=== PATIENT | male | born 1975 | race Caucasian/White ===

== ENCOUNTER 2016-06-29 03:21 | Emergency (ER) | payer MEDICAID, OTHER ==
[~2016-06-29] VITALS: Ht 180.3 cm; Wt 71.0 kg
[2016-06-29 03:24] VITALS: Ht 180.3 cm; Wt 71.0 kg
[2016-06-29] MEDS ORDERED: SOD CHLORIDE 0.9% 1,000 ML IV STA (03:50)
[2016-06-29] MEDS ORDERED: ONDANSETRON 4 MG INJ IV STA (03:50)
[2016-06-29 04:30] LABS: ALBUMIN 4.3 g/dl (3.3-4.9); CHLORIDE 98 mmol/L (97-110); HEMATOCRIT 45.7 % (42.0-52.0); HEMOGLOBIN 15.9 g/dl (14.0-18.0); LYMPHOCYTES % 10.6 % (15.0-51.0); MEAN CORPUSCULAR HEMOGLOBIN 31.9 pg (29.0-33.0); MEAN CORPUSCULAR HGB CONC 34.8 g/dl (32.0-37.0); MEAN CORPUSCULAR VOLUME 91.6 fl (82.0-101.0); MEAN PLATELET VOLUME 8.2 fl (7.4-10.4); MONOCYTE # 0.4 10^3/ul (0.3-0.9); MONOCYTES % 4.7 % (0.0-11.0); NEUTROPHIL # 8.1 10^3/ul (1.6-7.5); NEUTROPHILS % 84.7 % (39.0-77.0); PLATELET COUNT 311 10^3/UL (140-440); RED BLOOD COUNT 4.99 10^6/ul (4.70-6.10); RED CELL DISTRIBUTION WIDTH 13.2 % (11.5-14.5); UNCORRECTED WBC 9.5 10^3/ul (4.8-10.8); WHITE BLOOD COUNT 9.5 10^3/ul (4.8-10.8)
[2016-06-29 04:31] LABS: POTASSIUM 3.4 mmol/L (3.5-5.1); SODIUM 143 mmol/L (135-144)
[2016-06-29 04:33] LABS: ALBUMIN/GLOBULIN RATIO 1.34; ALKALINE PHOSPHATASE 78 IU/L (42-121); ANION GAP 21 (8-16); ASPARTATE AMINO TRANSFERASE 27 IU/L (15-46); BILIRUBIN,INDIRECT 0.4 mg/dl (0-1.1); BILIRUBIN,TOTAL 0.4 mg/dl (0.2-1.3); BLOOD UREA NITROGEN 18 mg/dl (7-20); CARBON DIOXIDE 27 mmol/L (21-31); CREATININE 0.81 mg/dl (0.61-1.24); TOTAL PROTEIN 7.5 g/dl (6.1-8.1)
[2016-06-29 04:34] LABS: ALANINE AMINOTRANSFERASE 41 IU/L (13-69); CALCIUM 9.4 mg/dl (8.4-10.2); GLUCOSE 149 mg/dl (70-220)
--- NOTE | 2016-06-29 04:39 | RADRPT ---
PROCEDURE: Chest. CLINICAL INDICATION: Chest pain. TECHNIQUE: Single frontal view of the chest was obtained. COMPARISON: None. FINDINGS: The cardiac silhouette is within normal limits. The aortic arch is unremarkable. There is no focal consolidation, vascular congestion or pleural effusion. There is no pneumothorax. IMPRESSION: No evidence for active cardiopulmonary disease. .Hollis Ham MD, MD Date Time Electronically viewed and signed by .Hollis Ham MD, on 06/29/2016 04:39 .T/
[2016-06-29 04:52] LABS: TROPONIN-I < 0.012 ng/ml (0.00-0.12)
[2016-06-29 04:58] LABS: CONDITION 1
[2016-06-29 05:28] LABS: MODE ROOM AIR; MetHgb Venous 0.2 %; Sample Type Blood venous; Venous COHb 0.1 %; Venous Fraction OxyHgb 71.9 %; Venous Total Hemglobin 16.4 g/dl
[2016-06-29] MEDS ORDERED: ONDA8TAB14 PO (06:15)
[2016-06-29 06:26] LABS: ADD UMIC NO; URINE BILIRUBIN (Dip) NEGATIVE (NEGATIVE); URINE BLOOD (Dip) NEGATIVE (NEGATIVE); URINE COLOR LT. YELLOW (YELLOW); URINE GLUCOSE (Dip) NEGATIVE (NEGATIVE); URINE KETONES (Dip) NEGATIVE (NEGATIVE); URINE LEUKOCYTE ESTERASE (Dip) NEGATIVE (NEGATIVE); URINE NITRITE (Dip) NEGATIVE (NEGATIVE); URINE TOTAL PROTEIN (Dip) NEGATIVE (NEGATIVE); URINE UROBILINOGEN (Dip) 0.2 E.U./dL (0.1-1.0)
--- NOTE | 2016-06-29 06:32 | ERD ---
ER Documentation Chief Complaint Date/Time DATE: 06/29/16 TIME: 06:27 Chief Complaint ABDOMINAL PAIN WITH N/V/D X 3 DAYS HPI 41-year-old male with no past medical history presenting with nausea and vomiting for 3 days. He has had associated abdominal cramping. He has had normal bowel movements without diarrhea. He has been exposed to someone with the stomach flu. He also ate a frozen burger at work that did not seem right. He denies any associated fevers or chills. Vomitus is nonbloody and nonbilious. His abdominal cramping is intermittent, rated at an 8 out of 10 at its worst. Currently he denies any abdominal pain but complains of severe nausea. No associated dysuria, headache, neck stiffness, neck pain, or vision change ROS All systems reviewed and are negative except as per history of present illness. Medications Home Meds Active Scripts Ondansetron (Ondansetron Odt) 8 Mg Tab.rapdis, 8 MG PO Q6H Y for NAUSEA AND/OR VOMITING, #10 TAB Prov:LUCILA WHITE MD 06/29/16 PMhx/Soc Medical and Surgical Hx: pt denies Medical Hx, pt denies Surgical Hx History of Surgery: No Anesthesia Reaction: No Hx Neurological Disorder: No Hx Respiratory Disorders: No Hx Cardiac Disorders: No Hx Psychiatric Problems: No Hx Miscellaneous Medical Probl: No Hx Alcohol Use: No Hx Substance Use: Yes (marijuana) Hx Tobacco Use: No Smoking Status: Never smoker FmHx Family History: No diabetes Physical Exam Vitals Vital Signs Date Time Temp Pulse Resp B/P Pulse Ox O2 Delivery O2 Flow Rate FiO2 06/29/16 05:48 67 17 131/72 98 Room Air 06/29/16 04:14 62 12 119/87 100 06/29/16 03:24 98.0 69 18 119/84 100 Physical Exam Const: Mildly ill-appearing, nontoxic, appears nauseated Head: Atraumatic Eyes: Normal Conjunctiva ENT: Normal External Ears, Nose. Dry oral mucosa Neck: Full range of motion. No meningismus. Resp: Clear to auscultation bilaterally Cardio: Regular rate and rhythm, no murmurs Abd: Soft, non tender, non distended. Normal bowel sounds Skin: No petechiae or rashes, pale Back: No midline or flank tenderness Ext: No cyanosis, or edema Neur: Awake and alert and oriented 3, moving all extremities, strength and sensations intact Psych: Normal Mood and Affect Result Diagram: 06/29/160 06/29/16 0400 Results 24 hrs Laboratory Tests Test 06/29/16 04:00 06/29/16 05:03 06/29/16 05:35 Alanine Aminotransferase (ALT/SGPT) 41IU/L Albumin 4.3g/dl Albumin/Globulin Ratio 1.34 Alkaline Phosphatase 78IU/L Anion Gap 21 Aspartate Amino Transf (AST/SGOT) 27IU/L Basophils # 0.010^3/ul Basophils % 0.0% Blood Urea Nitrogen 18mg/dl Calcium Level 9.4mg/dl Carbon Dioxide Level 27mmol/L Chloride Level 98mmol/L Creatinine 0.81mg/dl Direct Bilirubin 0.00mg/dl Eosinophils # 0.010^3/ul Eosinophils % 0.0% Ethyl Alcohol Level < 10.0mg/dl Globulin 3.20g/dl Glucose Level 149mg/dl Hematocrit 45.7% Hemoglobin 15.9g/dl Indirect Bilirubin 0.4mg/dl Lipase 65U/L Lymphocytes # 1.010^3/ul Lymphocytes % 10.6% Mean Corpuscular Hemoglobin 31.9pg Mean Corpuscular Hemoglobin Concent 34.8g/dl Mean Corpuscular Volume 91.6fl Mean Platelet Volume 8.2fl Monocytes # 0.410^3/ul Monocytes % 4.7% Neutrophils # 8.110^3/ul Neutrophils % 84.7% Nucleated Red Blood Cells # 0.010^3/ul Nucleated Red Blood Cells % 0.0/100WBC Platelet Count 04681^3/UL Potassium Level 3.4mmol/L Red Blood Count 4.9910^6/ul Red Cell Distribution Width 13.2% Sodium Level 143mmol/L Total Bilirubin 0.4mg/dl Total Protein 7.5g/dl Troponin I < 0.012ng/ml White Blood Count 9.510^3/ul Luis Test N/A Arterial Blood Date Drawn 06/29/2016 5:20:07 AM Arterial Blood Gas Puncture Site VENOUS LINE Blood Gas Modality ROOM AIR Blood Gas Notified Time 06/29/2016 5:27:53 AM Blood Gas Notified Whom AA Blood Gas Specimen Source Blood venous Blood Gas Temperature 37.0C Carboxyhemoglobin 0.1% FiO2 21.0% Venous Blood Base Excess 3.9mmol/L Venous Blood HCO3 27.7mmol/L Venous Blood Methemoglobin 0.2% Venous Blood Oxygen Saturation 72.1mmHG Venous Blood Oxyhemoglobin 71.9% Venous Blood Total Hemoglobin 16.4g/dl Venous Blood pCO2 (Temp Corrected) 39.1mmHG Venous Blood pH 7.468 Venous Blood pO2 (Temp Corrected) 35.2mmHG Lactic Acid Level 1.3mmol/L Current Medications Medications (Trade) Dose Ordered Sig/Giorgi Route PRN Reason Start Time Stop Time Status Last Admin Dose Admin Sodium Chloride (NS) 1,000 ml @ 1,000 mls/hr Q1H STAT IV 06/29/16 03:50 06/29/16 04:49 DC 06/29/16 03:55 Ondansetron HCl (Zofran Inj) 4 mg ONCE STAT IV 06/29/16 03:50 06/29/16 03:51 DC 06/29/16 03:56 Procedures/MDM Patient is presenting with diffuse abdominal cramping associated with nausea and vomiting. His vitals are stable and he is afebrile. I have a low suspicion for acute surgical abdomen. Differential for his symptoms includes pancreatitis, cholecystitis, colitis, urinary tract infection. I have a low suspicion for diverticulitis or acute appendicitis. Labs did not show any acute abnormalities other than an elevated anion gap, likely secondary to dehydration. IV fluids were given. IV Zofran was given. Upon reexamination the patient's symptoms had significantly improved and he appeared to be in no distress. His repeat abdominal exam was benign. I do not believe imaging is necessary at this time. Patient is tolerating fluids by mouth without any recurrent vomiting. Patient feels ready to go home. I will give him Zofran prescription for his symptoms. Return precautions were discussed in detail. I urged him to return for repeat abdominal exam if his pain worsens in the next 8- 12 hours per patient was stable upon discharge. Departure Diagnosis: Primary Impression: Abdominal pain Abdominal location: generalized Qualified Code: R10.84 - Generalized abdominal pain Additional Impressions: Nausea and vomiting Vomiting type: unspecified Vomiting Intractability: non-intractable Qualified Code: R11.2 - Non-intractable vomiting with nausea, unspecified vomiting type Dehydration Abdominal cramps Condition: Stable Patient Instructions: Abdominal Pain, Nausea and Vomiting-Adult Additional Instructions: Return to the ER for any worsening symptoms. LUCILA WHITE MD Jun 29, 2016 06:32
[2016-06-29 06:45] VITALS: BP 126/77; PULSE 61; RESP 18; TEMP 99.1
== END 2016-06-29 06:47 | disposition home or self-care (01) ==
LOC: E/R 03:21
DX: R10.84 Generalized abdominal pain (principal); R40.2252 Coma scale, best verbal response, oriented, at arrival to emergency department; E86.0 Dehydration; R40.2362 Coma scale, best motor response, obeys commands, at arrival to emergency department; R40.2142 Coma scale, eyes open, spontaneous, at arrival to emergency department
CPT/HCPCS: 36415; 71010; 80053; 80306; 81003; 82803; 83605; 83690; 84484; 85025; 93005; 96374; J2405; J7030; Z7502